=== PATIENT | male | born 1985 ===

== ENCOUNTER 2022-03-26 15:41 | Emergency (ER) | payer SELFPAY ==
[2022-03-26 21:33] VITALS: BP 118/77
--- NOTE | 2022-03-26 22:58 | Emergency Department Report ---
ED General Adult HPI - General Chief complaint: Extremity Injury, Lower Stated complaint: TOE INJURY Time Seen by Provider: 03/26/22 20:52 Source: patient Mode of arrival: Ambulatory Limitations: No Limitations - History of Present Illness Initial comments: 36-year-old male presents emergency department complaining of atraumatic right toe pain which he thinks is secondary to when does type work boots forcing the periods of time for prolonged period time. Reports no fever, chills, sweats. No broken skin pain, no bleeding, no discharge. -: Gradual Location: lower extremity Radiation: extremity Severity scale (0 -10): 8 Quality: aching, dull Consistency: constant Worsens with: none Treatments Prior to Arrival: none - Related Data Previous Rx's Medication Instructions Recorded Last Taken Type Ketorolac [Toradol] 10 mg PO Q6H PRN #20 03/26/22 Unknown Rx cephALEXin [Keflex] 500 mg PO Q8HR #21 cap 03/26/22 Unknown Rx Allergies Allergy/AdvReac Type Severity Reaction Status Date / Time No Known Allergies Allergy Verified 03/26/22 18:54 ED Review of Systems ROS: Stated complaint: TOE INJURY Other details as noted in HPI Comment: All other systems reviewed and negative ED Past Medical Hx - Medications Home Medications: Home Medications Medication Instructions Recorded Confirmed Last Taken Type Ketorolac [Toradol] 10 mg PO Q6H PRN #20 03/26/22 Unknown Rx cephALEXin [Keflex] 500 mg PO Q8HR #21 cap 03/26/22 Unknown Rx ED Physical Exam - General Limitations: No Limitations General appearance: alert, in no apparent distress - Head Head exam: Present: atraumatic, normocephalic - Eye Eye exam: Present: normal appearance, PERRL Pupils: Present: normal accommodation - ENT ENT exam: Present: normal exam, normal orophraynx, mucous membranes moist, TM's normal bilaterally - Neck Neck exam: Present: normal inspection - Respiratory Respiratory exam: Present: normal lung sounds bilaterally. Absent: respiratory distress, wheezes, rales - Cardiovascular Cardiovascular Exam: Present: regular rate, normal rhythm. Absent: systolic murmur, diastolic murmur, rubs, gallop - GI/Abdominal GI/Abdominal exam: Present: soft, normal bowel sounds - Rectal Rectal exam: Present: deferred - Extremities Exam Extremities exam: Present: normal inspection, tenderness (Tenderness to the right fourth toe with some redness and swelling in the area of the nail matrix. No broken skin is noted. No lymphangitis.), normal capillary refill - Back Exam Back exam: Present: normal inspection - Neurological Exam Neurological exam: Present: alert, oriented X3 - Psychiatric Psychiatric exam: Present: normal affect, normal mood - Skin Skin exam: Present: warm, dry, intact, normal color. Absent: rash ED Course Vital Signs 03/26/22 03/26/22 18:50 21:33 Temperature 98.1 F Pulse Rate 65 68 Respiratory 18 12 Rate Blood Pressure 116/67 118/77 [Right] O2 Sat by Pulse 97 100 Oximetry Critical care attestation.: If time is entered above; I have spent that time in minutes in the direct care of this critically ill patient, excluding procedure time. ED Disposition Clinical Impression: Cellulitis of right toe Disposition: 01 HOME / SELF CARE / HOMELESS Is pt being admited?: No Does the pt Need Aspirin: No Condition: Stable Instructions: Cellulitis, Adult Prescriptions: cephALEXin [Keflex] 500 mg PO Q8HR #21 cap Ketorolac [Toradol] 10 mg PO Q6H PRN #20 PRN Reason: Pain Referrals: ISABEL HERNANDEZ MD [Staff Physician] - 3-5 Days
== END 2022-03-27 00:21 | disposition home or self-care (01) ==
LOC: ED 15:41
DX: L03.031 Cellulitis of right toe (principal)
CPT/HCPCS: 99282